=== PATIENT | male | born 1955 | race American Indian/Alaskan Native ===

== ENCOUNTER 2019-04-24 21:03 | Emergency (ER) | payer SELFPAY ==
--- NOTE | 2019-04-24 21:29 | Emergency Department Report ---
Blank Doc - Documentation Documentation: 63-year-old male that presents with lower back pain after heavy lifting. Denies any trauma. This initial assessment/diagnostic orders/clinical plan/treatment(s) is/are subject to change based on patient's health status, clinical progression and re- assessment by fellow clinical providers in the ED. Further treatment and workup at subsequent clinical providers discretion. Patient/guardians urged not to elope from the ED as their condition may be serious if not clinically assessed and managed. Initial orders include: 1- Patient sent to [facility] for further evaluation and treatment
[2019-04-24 21:31] VITALS: BP 151/71
--- NOTE | 2019-04-24 22:43 | XRay Report ---
LUMBOSACRAL SPINE 2 VIEWS. INDICATION / CLINICAL INFORMATION: low back pain COMPARISON: None available. FINDINGS: BONES / JOINT(S): No acute fracture or subluxation. Mild degenerative disc disease is scattered diffu sely. SOFT TISSUES: No significant abnormality. ADDITIONAL FINDINGS: None. Signer Name: Maciel Lynne MD Signed: 04/24/2019 10:39 PM Workstation Name: [id number]
[2019-04-24] MEDS ORDERED: FLEXERIL PO ONE (23:08)
[2019-04-24] MEDS ORDERED: TORADOL IV ONE (23:08)
--- NOTE | 2019-04-24 23:16 | Emergency Department Report ---
ED Back Pain/Injury HPI - General Chief Complaint: Back Pain/Injury Stated Complaint: BACK PAIN Time Seen by Provider: 04/24/19 21:28 Source: patient Limitations: Physical Limitation - History of Present Illness Initial Comments: Patient is a 63-year-old male presents the emergency room with complaints of lower back pain that began this morning. He states he picked up something heavy at work. He denies any fall or injury. denies hearing a popping noise. The patient denies any numbness, weakness, bowel or bladder incontinence. States he has a past medical history of high blood pressure. denies any allergies to medications. - Related Data Previous Rx's Medication Instructions Recorded Last Taken Type Cyclobenzaprine [Flexeril] 10 mg PO QHS PRN #10 tablet 04/24/19 Unknown Rx Naproxen [Naprosyn TAB] 500 mg PO BID PRN #14 tablet 04/24/19 Unknown Rx Allergies Allergy/AdvReac Type Severity Reaction Status Date / Time No Known Allergies Allergy Verified 04/24/19 21:19 ED Review of Systems ROS: Stated complaint: BACK PAIN Other details as noted in HPI Comment: All other systems reviewed and negative ED Past Medical Hx - Past Medical History Hx Heart Attack/AMI: Yes (STENTS) Hx Psychiatric Treatment: Yes (ANXIETY, HAS RX FOR MARIJUANA) Additional medical history: CHRONIC BACK PAIN - Social History Smoking Status: Former Smoker Substance Use Type: Alcohol, Marijuana - Medications Home Medications: Home Medications Medication Instructions Recorded Confirmed Last Taken Type Cyclobenzaprine [Flexeril] 10 mg PO QHS PRN #10 tablet 04/24/19 Unknown Rx Naproxen [Naprosyn TAB] 500 mg PO BID PRN #14 tablet 04/24/19 Unknown Rx ED Physical Exam - General Limitations: Physical Limitation General appearance: alert, in no apparent distress - Head Head exam: Present: atraumatic, normocephalic - Eye Eye exam: Present: normal appearance - ENT ENT exam: Present: mucous membranes moist - Neck Neck exam: Present: normal inspection, full ROM. Absent: tenderness - Respiratory Respiratory exam: Present: normal lung sounds bilaterally. Absent: respiratory distress, wheezes, rales, rhonchi, stridor, chest wall tenderness, accessory muscle use, decreased breath sounds, prolonged expiratory - Cardiovascular Cardiovascular Exam: Present: regular rate, normal rhythm, normal heart sounds. Absent: systolic murmur, diastolic murmur, rubs, gallop - Back Exam Back exam: Present: normal inspection, full ROM, paraspinal tenderness (bilateral lumbar paraspinal muscular TTP, no midline C-spine, T-spine, or L- spine tenderness, no step offs, no deformities). Absent: vertebral tenderness - Neurological Exam Neurological exam: Present: alert, oriented X3, other (5/5 strength in the BLE, sensation intact in the BLE) - Psychiatric Psychiatric exam: Present: normal affect, normal mood - Skin Skin exam: Present: warm, dry, intact ED Course Vital Signs 04/24/19 21:28 Temperature 98.6 F Pulse Rate 72 Respiratory 16 Rate Blood Pressure 151/71 O2 Sat by Pulse 95 Oximetry ED Medical Decision Making - Radiology Data Radiology results: report reviewed LUMBOSACRAL SPINE 2 VIEWS. INDICATION / CLINICAL INFORMATION: low back pain COMPARISON: None available. FINDINGS: BONES / JOINT(S): No acute fracture or subluxation. Mild degenerative disc disease is scattered diffusely. SOFT TISSUES: No significant abnormality. ADDITIONAL FINDINGS: None. Signer Name: Maciel Lynne MD Signed: 04/24/2019 10:39 PM Workstation Name: [id number] Transcribed By: ES Dictated By: Maciel Lynne MD Electronically Authenticated By: Maciel Lynne MD Signed Date/Time: 04/24/19 223 - Medical Decision Making Patient is a 63-year-old male presents the emergency room with complaints of lower back pain that began this morning. He states he picked up something heavy at work. He denies any fall or injury. denies hearing a popping noise. The patient denies any numbness, weakness, bowel or bladder incontinence. States he has a past medical history of high blood pressure. denies any allergies to medications. vss. on exam: bilateral lumbar paraspinal muscular TTP, no midline C-spine, T-spine, or L-spine tenderness, no step offs, no deformities, 5/5 strength in the BLE, sensation intact in the BLE. XR L-spine: No acute fracture or subluxation. Mild degenerative disc disease is scattered diffusely. pt did not drive to the ED today. pts discomfort treated while in the emergency department, pt did not drive to the ED. patient given prescription for naproxen and Flexeril. Advised patient to take medication as prescribed as needed. Do not drive or operate heavy machinery while taking muscle relaxer. may use ice, rest, hearing pad, Epsom salt bath. follow up with a primary care doctor in the next 2-3 days. return the emergency room for any new or worsening symptoms. - Differential Diagnosis low back strain, fx, dislocation, sciatica, DDD, spondylolysis Critical care attestation.: If time is entered above; I have spent that time in minutes in the direct care of this critically ill patient, excluding procedure time. ED Disposition Clinical Impression: Low back pain Qualifiers: Chronicity: acute Back pain laterality: bilateral Sciatica presence: without sciatica Qualified Code(s): M54.5 - Low back pain Strain of lumbar paraspinal muscle Qualifiers: Encounter type: initial encounter Qualified Code(s): S39.012A - Strain of muscle, fascia and tendon of lower back, initial encounter Disposition: TO HOME OR SELFCARE Is pt being admited?: No Does the pt Need Aspirin: No Condition: Stable Instructions: Muscle Strain (ED) Additional Instructions: please take medication as prescribed as needed. Do not drive or operate heavy machinery while taking muscle relaxer. may use ice, rest, hearing pad, Epsom salt bath. follow up with a primary care doctor in the next 2-3 days. return the emergency room for any new or worsening symptoms. Prescriptions: Cyclobenzaprine [Flexeril] 10 mg PO QHS PRN #10 tablet PRN Reason: Muscle Spasm Naproxen [Naprosyn TAB] 500 mg PO BID PRN #14 tablet PRN Reason: pain Referrals: [facility] [Provider Group] - 2-3 Days Time of Disposition: 23:16 Print Language: JAPANESE
== END 2019-04-24 23:46 | disposition home or self-care (01) ==
LOC: ED 21:03
DX: S39.012A Strain of muscle, fascia and tendon of lower back, initial encounter (principal); X58.XXXA Exposure to other specified factors, initial encounter; Y93.89 Activity, other specified; Y92.89 Other specified places as the place of occurrence of the external cause; Y99.8 Other external cause status
CPT/HCPCS: 72100; 96374; 99284; J1885

== ENCOUNTER 2021-02-25 17:29 | Emergency (ER) | payer MEDICARE ==
[2021-02-25] MEDS ORDERED: ASPIRIN 325 MG TAB ONE (17:38)
[2021-02-25 18:07] VITALS: BP 117/56
[2021-02-25] MEDS ORDERED: ASPIRIN 325 MG TAB PO ONE (18:12)
[2021-02-25 18:58] LABS: Basophils # (Auto) 0.1 K/mm3 (0.0-0.1); Eosinophils # (Auto) 0.2 K/mm3 (0.0-0.4); Eosinophils % (Auto) 3.8 % (0.0-4.3); Hematocrit 37.7 % (35.5-45.6); Lymphocytes % (Auto) 30.2 % (13.4-35.0); Mean Corpuscular HGB Conc 34 % (32-34); Mean Corpuscular Volume 85 fl (84-94); Monocytes # (Auto) 0.6 K/mm3 (0.0-0.8); Monocytes % (Auto) 9.4 % (0.0-7.3); Platelet Count 181 K/mm3 (140-440); Red Blood Count 4.44 M/mm3 (3.65-5.03); Red Cell Distribution Width 16.9 % (13.2-15.2)
[2021-02-25 19:19] LABS: Alanine Aminotransferase 12 units/L (7-56); Albumin 4.2 g/dL (3.9-5); BUN/Creatinine Ratio 13; Blood Urea Nitrogen 24 mg/dL (9-20); Calcium 8.9 mg/dL (8.4-10.2); Hemolysis Index 13
--- NOTE | 2021-02-25 19:46 | XRay Report ---
CHEST 2 VIEWS INDICATION / CLINICAL INFORMATION: CP. COMPARISON: None available. FINDINGS: SUPPORT DEVICES: None. HEART / MEDIASTINUM: No significant abnormality. LUNGS / PLEURA: No significant pulmonary or pleural abnormality. No pneumothorax. ADDITIONAL FINDINGS: No significant additional findings. IMPRESSION: 1. No acute findings. Signer Name: Rell Andre MD Signed: 02/25/2021 7:41 PM Workstation Name: [id number]
[2021-02-25 21:00] LABS: INR 0.92 (0.87-1.13)
[2021-02-25 21:01] LABS: Partial Thromboplastin Time 27.9 Sec. (24.2-36.6)
--- NOTE | 2021-02-26 09:50 | Electrocardiograph Report ---
[facility] Test Date: 2021-02-25 Test Time: 17:33:39 Pat Name: AVA CASTAÑEDA Department: Room: Gender: M Pathological Technician: AVA : 1955 Requested By: PRINCESS JUAREZ Order Number: [id number] Reading MD: Mark Landa Measurements Intervals [place] Rate: 80 P: 51 AR: 186 QRS: -45 QRSD: 113 T: 57 QT: 421 QTc: 480 Interpretive Statements Sinus rhythm Atrial premature complexes LAD, consider left anterior fascicular block Left ventricular hypertrophy Anterior infarct, old No previous ECG available for comparison Electronically Signed On 02-26-2021 9:50:11 EDT by Mark Landa
== END 2021-02-25 21:30 | disposition left against medical advice (07) ==
LOC: ED 17:29
DX: R07.89 Other chest pain (principal); Z53.21 Procedure and treatment not carried out due to patient leaving prior to being seen by health care provider
CPT/HCPCS: 36415; 71046; 80053; 84484; 85025; 85610; 85730; 93005